=== PATIENT | female | born 1940 | race Hispanic/Latino ===

== ENCOUNTER 2021-09-04 10:36 | Outpatient (CLI) | payer MEDICARE ==
--- NOTE | 2021-09-04 14:29 | Vascular Lab Report ---
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 TECHNIQUE: Arterial duplex examination of both lower extremities performed using B-mode, color flow a nd spectral Doppler assessment. FINDINGS: RIGHT: Common Femoral Artery: PSV 127 cm/sec. Triphasic waveform. Proximal SFA: PSV 115 cm/sec. Biphasic waveform. Mid SFA: PSV 127 cm/sec. Biphasic waveform. Distal SFA: PSV 79 cm/sec. Biphasic waveform. Popliteal Artery: PSV 73 cm/sec. Biphasic waveform. Posterior Tibial Artery: PSV 80 cm/sec. Biphasic waveform. Dorsalis Pedis Artery: PSV 21 cm/sec. Biphasic waveform. LEFT: Common Femoral Artery: PSV 113 cm/sec. Biphasic waveform. Proximal SFA: PSV 119 cm/sec. Biphasic waveform. Mid SFA: PSV 111 cm/sec. Triphasic waveform. Distal SFA: PSV 94 cm/sec. Biphasic waveform. Popliteal Artery: PSV 68 cm/sec. Biphasic waveform. Posterior Tibial Artery: PSV 92 cm/sec. Biphasic waveform. Dorsalis Pedis Artery: PSV 43 cm/sec. Biphasic waveform. ADDITIONAL FINDINGS: None. RIGHT LAM: Not calculated. LEFT LAM: Not calculated. IMPRESSION: 1. Mild atherosclerotic calcification is noted throughout both lower extremities without evidence of hemodynamically significant stenosis or occlusion. Ankle-Brachial Index (LAM): - Calcified arteries > 1.4 - Normal = 0.9-1.4 - Mild PAD = 0.7-0.89 - Moderate PAD = 0.51-0.69 - Severe PAD < 0.5 Doppler Waveform: - Triphasic is normal. - Biphasic is abnormal if clear transition from triphasic signal along vascular tree. - Monophasic is abnormal. Scribed by: Apple Painter RDMS, RVT, RMSKS Scribed: 09/04/2021 1:08 PM I have reviewed the images, agree with this report, and edited this report as needed. Signer Name: Cahvo Quinonez MD Signed: 09/04/2021 2:25 PM Workstation Name: [id number]
== END 2021-09-04 10:37 | disposition home or self-care (01) ==
LOC: VAS 10:36
PROVIDERS: ATTEND Radiology Diagnostic Radiology
DX: I70.213 Atherosclerosis of native arteries of extremities with intermittent claudication, bilateral legs (principal)
CPT/HCPCS: 93925